=== PATIENT | male | born 1985 | race American Indian/Alaskan Native ===

== ENCOUNTER 2018-12-19 06:51 | Emergency (ER) | payer OTHER ==
[2018-12-19 07:09] VITALS: BP 132/79
[2018-12-19] MEDS ORDERED: XYLOCAINE 2% INFILTRATI STA (08:17)
--- NOTE | 2018-12-19 09:18 | Emergency Department Report ---
Abscess Boil HPI - HPI Chief Complaint: Skin/Abscess/Foreign Body Stated Complaint: LT SIDE FACIAL SWELLING Time Seen by Provider: 12/19/18 08:09 Duration: 4 Days Location: Other (left face) History: Yes Pain, No Fever, No Purulent Drainage, No Numbness, No Foreign Body, No Insect Bite HPI: 33-year-old male since emergency department complaining of painful swelling to the left cheek was started as well as a small papule. Papules present for several days for emergent has a painful, fluctuant mass over the last 4-5 days. Reports no fever, chills, sweats, chest pain, palpitations. No dysphagia. No odynophagia. Home Medications: Previous Rx's Medication Instructions Recorded Last Taken Type Chlorhexidine Gluconate [Hibiclens] 10 ml TP BID #240 liquid 12/19/18 Unknown Rx Sulfamethoxazole/Trimethoprim 2 each PO BID #40 tablet 12/19/18 Unknown Rx [Bactrim Ds] Allergies/Adverse Reactions: Allergies Allergy/AdvReac Type Severity Reaction Status Date / Time No Known Allergies Allergy Unverified 12/19/18 06:54 ED Review of Systems ROS: Stated complaint: LT SIDE FACIAL SWELLING Other details as noted in HPI Constitutional: denies: chills, fever Eyes: denies: eye pain, eye discharge, vision change ENT: denies: ear pain, throat pain Respiratory: denies: cough, shortness of breath, wheezing Cardiovascular: denies: chest pain, palpitations Endocrine: no symptoms reported Gastrointestinal: denies: abdominal pain, nausea, diarrhea Genitourinary: denies: urgency, dysuria Musculoskeletal: denies: back pain, joint swelling, arthralgia Skin: denies: rash, lesions Neurological: denies: headache, weakness, paresthesias Psychiatric: denies: anxiety, depression Hematological/Lymphatic: denies: easy bleeding, easy bruising ED Past Medical Hx - Past Medical History Previous Medical History?: No - Surgical History Past Surgical History?: No - Social History Smoking Status: Never Smoker Substance Use Type: None - Medications Home Medications: Home Medications Medication Instructions Recorded Confirmed Last Taken Type Chlorhexidine Gluconate [Hibiclens] 10 ml TP BID #240 liquid 12/19/18 Unknown Rx Sulfamethoxazole/Trimethoprim 2 each PO BID #40 tablet 12/19/18 Unknown Rx [Bactrim Ds] ED Abscess Boil Physical Exam - Exam General: Vital signs noted. No distress. Alert and acting appropriately. Front/Back of Body, Lg (Color): 1 - Abscess to this region. Pain with palpation. Size: 3 cm Exam: Yes Tenderness, Yes Fluctuance, Yes Surrounding Cellulites/Erythema, Yes Normal Neurologic Exam, Yes Normal Circulation, No Lymphangitis, No Crepitation, No Heart Murmur I & D Note - I & D Note I & D Note: Abscess prepped and draped in aseptic fashion. Wound was lanced with a 15 blade and copious amounts of. Drainage was evacuated. Wound was irrigated with normal saline and and a pressure dressing was placed. Procedure tolerated well is no blood loss less than 2 mL ED Course Vital Signs 12/19/18 07:08 Temperature 98.1 F Pulse Rate 72 Respiratory 16 Rate Blood Pressure 132/79 O2 Sat by Pulse 99 Oximetry Critical care attestation.: If time is entered above; I have spent that time in minutes in the direct care of this critically ill patient, excluding procedure time. ED Disposition Clinical Impression: Abscess Disposition: DC-01 TO HOME OR SELFCARE Is pt being admited?: No Does the pt Need Aspirin: No Condition: Stable Instructions: Abscess (ED), Abscess Incision and Drainage (ED) Additional Instructions: She'll follow up with primary care provider or the list provider in 3 days for reevaluation. Clean wound daily with antimicrobials (take anabiotic Center the have been completed. Should you develop any worsening swelling, fever, redness, return to emergency department Referrals: ALFONSO FIGUEROA MD [Primary Care Provider] - 3-5 Days
== END 2018-12-19 09:44 | disposition home or self-care (01) ==
LOC: ED 06:51
DX: L02.01 Cutaneous abscess of face (principal)
CPT/HCPCS: 99282